=== PATIENT | male | born 1950 | race Caucasian/White ===

== ENCOUNTER → 2017-01-27 | Outpatient (CLI) | payer OTHER ==
[~2017-01-27] MED LIST: AMARYL4 MG PO; ASPIR 8181 MG PO; ATORVASTATIN CA40 MG PO; DIABETA 2.5MG2.5 MG PO; FERRIC X-150150 MG PO; HUMALOG KW200 UNIT/1 SUBQ; HYDROCODON-ACE1 EAC7 PO; LASIX 40 MG TAB40 M2 PO; LEVEMIR SUBQ; LOPRESSOR50 PO; METFORMIN HCL500 MG PO; MIRALAX17 GM PO; PACERONE 200 M200 M1 PO; PRADAXA150 MG PO; PRINIVIL10 MG PO; PRINIVIL20 M1 PO
--- NOTE | ~2017-01-27 | 2DMMODE ---
[facility] [place] [address] 2 D/M-MODE ECHOCARDIOGRAM Name: ALLEY RITTER Room #: REG CL [facility]#: [id number] Admission: 01/27/17 Attend Phys: Leeroy Davila MD Discharge: Date of : 46 Date of Service: 01/27/17 1210 Report #: [id number] THIS REPORT FOR: //name// APPROVED REPORT Study performed: 01/27/2017 10:07:16 EXAM: Comprehensive 2D, Doppler, and color-flow Echocardiogram Patient Location: Out-Patient Blood Pressure: 167/83 mmHg HR: 58 bpm Other Information Study Quality: Adequate Indications CAD Hx: CABG, Afib, DM, HTN, HLP, obesity 2D Dimensions RVDd: 46.28 mm LVEF(%): 53.98 (>50%) IVSd: 12.87 (7-11mm) LVOT Diam: 20.93 (18-24mm) LVDd: 53.99 mm PWd: 11.84 (7-11mm) Ascending Aorta: 37.14 mm LVDs: 38.78 (25-40mm) Aortic Root: 36.35 mm Short's LVEF: 53.98 % Volumes Left Atrial Volume (Systole) Single Plane 4CH: 52.27 mL Single Plane 2CH: 77.17 mL Aortic Valve AoV Peak Wes.: 1.33 m/s AO Peak Gr.: 7.05 mmHg LV Max P.50 mmHg LV Max: 0.79 m/s Mitral Valve MV E Max Wes.: 1.16 m/s MV Decel. Time: 201.49 ms Pulmonary Valve [facility] [address] [address] 2 D/M-MODE ECHOCARDIOGRAM Name: ALLEY RITTER Room #: REG CL [facility]#: [id number] Admission: 01/27/17 Attend Phys: Leeroy Davila MD Discharge: Date of : 46 Date of Service: 01/27/17 1210 Report #: [id number] PV Peak Wes.: 0.97 m/s PV Peak Gr.: 3.77 mmHg Tricuspid Valve TR Peak Wes.: 3.66 m/s RAP Estimate: 10.00 mmHg TR Peak Gr.: 53.53 mmHg RVSP: 63.00 mmHg Left Ventricle The left ventricle is normal size. There is normal LV segmental wall motion. There is normal left ventricular wall thickness. Left ventricular systolic function is normal. LVEF is 55-60%. This study is not sufficienct for diastolic function. Right Ventricle Right ventricle is mildly dilated. The right ventricular systolic function is normal. Atria Left atrium is borderline dilated. Right atrium is dilated. Aortic Valve The aortic valve is normal in structure. No aortic regurgitation is present. There is no aortic valvular stenosis. Mitral Valve Mitral valve leaflets are mildly thickened. Mild mitral regurgitation. Tricuspid Valve The tricuspid valve is normal in structure. There is mild to moderate tricuspid regurgitation. The right atrial pressure is estimated at 10 mmHg. There is moderate pulmonary hypertension with an estimated PAP of 63mmHg. Pulmonic Valve The pulmonary valve is normal in structure. Mild pulmonic regurgitation. Great Vessels The aortic root is normal in size. The ascending aorta measures at the upper limits of normal. IVC is normal in size and collapses <50% with inspiration. Pericardium There is no pericardial effusion. <Conclusion> [facility] [address] [place] [address] 2 D/M-MODE ECHOCARDIOGRAM Name: RIYAALLEY Room #: REG [facility]#: [id number] Admission: 01/27/17 Attend Phys: Leeroy Davila MD Discharge: Date of : 46 Date of Service: 01/27/17 121 Report #: [id number] The left ventricle is normal size. Left ventricular systolic function is normal. Right ventricle is mildly dilated. Left atrium is borderline dilated. The aortic valve is normal in structure. Mild mitral regurgitation. There is mild to moderate tricuspid regurgitation. The right atrial pressure is estimated at 10 mmHg. There is pulmonary hypertension with an estimated PAP of 63mmHg. <ELECTRONICALLY SIGNED> By: Leeroy Davila MD 01/27/170 09 1210 Leeroy Davila MD /SUNSHINE
== END ==
LOC: CV 10:56
DX: I25.10 Atherosclerotic heart disease of native coronary artery without angina pectoris (principal); I48.91 Unspecified atrial fibrillation; I10 Essential (primary) hypertension; E11.9 Type 2 diabetes mellitus without complications; E78.5 Hyperlipidemia, unspecified; E66.9 Obesity, unspecified; Z95.1 Presence of aortocoronary bypass graft

== ENCOUNTER 2017-05-08 18:28 | Inpatient (IN) | payer OTHER ==
[~2017-05-08] VITALS: Ht 180.3 cm; Wt 104.8 kg
--- NOTE | ~2017-05-08 | EKG ---
[place] [address] [facility] [place] [address] ELECTROCARDIOGRAM REPORT Name: ALLEY RITTER Room #: 302-P ADM IN M.R.#: [id number] Admission: 05/08/17 Attend Phys: Collin Pickard DO Discharge: Date of : 46 Report #: [id number] THIS REPORT FOR: //name// [facility] ED Test Date: 2017-05-08 Test Time: 18:40:10 Pat Name: ALLEY RITTER Department: Room: 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 : 1950 Requested By: Ginger Crespo Order Number: [id number] MD: Ernst Colby Measurements Intervals [place] Rate: 77 P: 0 DC: 66 QRS: 4 QRSD: 119 T: -6 QT: 438 QTc: 496 Interpretive Statements Sinus rhythm Nonspecific ST and T wave abnormality Compared to ECG 10/02/2015 07:19:59 No significant change was found Electronically Signed On 05-09-2017 9:02:06 CDT by Ernst Colby [email or web address] <ELECTRONICALLY SIGNED> By: Ernst Colby MD, [facility] 05/09/17 0902 [id number] 39 Ernst Colby MD, [facility] /EPI
--- NOTE | ~2017-05-08 | 2DMMODE ---
[facility] [address] [place] [address] 2 D/M-MODE ECHOCARDIOGRAM Name: ALLEY RITTER Room #: 302-P [facility] IN [facility]#: [id number] Admission: 05/08/17 Attend Phys: Collin Pickard, Discharge: Date of : 46 Date of Service: 05/09/17 1149 Report #: [id number] THIS REPORT FOR: //name// APPROVED REPORT Study performed: 05/09/2017 07:49:05 EXAM: Comprehensive 2D, Doppler, and color-flow Echocardiogram Patient Location: In-Patient Room #: 302 Status: routine Other Information Study Quality: Adequate Indications Chest Pain Hx AFIB, HTN, HLP, CAD, CABG 2D Dimensions RVDd: 52.69 mm LVEF(%): 54.03 (>50%) IVSd: 14.68 (7-11mm) LVOT Diam: 21.92 (18-24mm) LVDd: 57.80 mm PWd: 13.74 (7-11mm) Ascending Ao: 34.28 (22-36mm) LVDs: 41.40 (25-40mm) Aortic Root: 34.32 mm Short's LVEF: 54.03 % Volumes Left Atrial Volume (Systole) Single Plane 4CH: 66.81 mL Single Plane 2CH: 71.57 mL LA ESV Index: 37.00 mL/m2 Aortic Valve AoV Peak Wes.: 1.25 m/s AO Peak Gr.: 6.24 mmHg LVOT Max P.34 mmHg LVOT Max V: 0.91 m/s ABIODUN Vmax: 2.76 cm2 Mitral Valve E/A Ratio: 2.6 MV Decel. Time: 206.47 ms MV E Max Wes.: 1.26 m/s MV A Wes.: 0.48 m/s MV PHT: 59.88 ms [facility] [place] [address] 2 D/M-MODE ECHOCARDIOGRAM Name: ALLEY RITTER Room #: 302-P [facility] IN .R.#: [id number] Admission: 05/08/17 Attend Phys: Collin Pickard, Discharge: Date of : 46 Date of Service: 05/09/17 1149 Report #: [id number] IVRT: 64.59 ms Pulmonary Valve PV Peak Wes.: 1.05 m/s PV Peak Gr.: 4.42 mmHg Pulmonary Vein P Vein S: 0.52 m/s P Vein A: 0.14 m/s P Vein D: 0.56 m/s P Vein A Dur.: 92.3 msec P Vein S/D Ratio: 0.93 Tricuspid Valve TR Peak Wes.: 2.95 m/s RAP Estimate: 5.00 mmHg TR Peak Gr.: 34.84 mmHg PA Pressure: 40.00 mmHg Left Ventricle The left ventricle is normal size. Moderate concentric left ventricular hypertrophy. The left ventricular systolic function is normal. The left ventricular ejection fraction is within the normal range. LVEF is 50-55%. The left ventricular diastolic function is normal. Right Ventricle Right ventricle is at the upper limits of normal. Atria Left atrium is dilated. Right atrium is dilated. Aortic Valve The aortic valve is normal in structure. Trace aortic regurgitation. There is no aortic valvular stenosis. Mitral Valve The mitral valve is normal in structure. Trace mitral regurgitation. No evidence of mitral valve stenosis. Tricuspid Valve The tricuspid valve is normal in structure. There is trace to mild tricuspid regurgitation. The right atrial pressure is estimated at 5 mmHg. There is mild pulmonary hypertension with an estimated PAP of 35 mmHg plus the right atrial pressure. Pulmonic Valve The pulmonary valve is normal in structure. Trace pulmonic regurgitation. [facility] [address] [place] [address] 2 D/M-MODE ECHOCARDIOGRAM Name: ALLEY RITTER Room #: 302-P [facility] IN ..#: [id number] Admission: 05/08/17 Attend Phys: Collin Pickard, Discharge: Date of : 46 Date of Service: 05/09/17 1149 Report #: [id number] Great Vessels The aortic root is normal in size. The ascending aorta is normal in size. IVC is normal in size and collapses >50% with inspiration. Pericardium There is no pericardial effusion. <Conclusion> The left ventricle is normal size. LVEF is 50-55%. Left atrium is dilated. Right atrium is dilated. The aortic valve is normal in structure. Trace aortic regurgitation. The mitral valve is normal in structure. Trace mitral regurgitation. The tricuspid valve is normal in structure. There is trace to mild tricuspid regurgitation. The right atrial pressure is estimated at 5 mmHg. There is mild pulmonary hypertension with an estimated PAP of 35 mmHg plus the right atrial pressure. The pulmonary valve is normal in structure. Trace pulmonic regurgitation. <ELECTRONICALLY SIGNED> By: Terrell Light MD 05/09/17 1149 1149 1149 Terrell Light MD /INF
[2017-05-08 18:39] VITALS: BP 162/73
[2017-05-08 19:24] LABS: ABSOLUTE NEUTROPHILS 8.6 thou/uL (1.4-8.2); BASOPHILS 0.8 % (0.0-2.0); EOSINOPHILS 2.2 % (0.0-3.0); HEMOGLOBIN 12.8 gm/dL (14.0-18.0); LYMPHOCYTES 4.3 % (24.0-44.0); MCH 32.8 pg (26.0-34.0); MCHC 34.5 g/dL (28.0-37.0); MCV 94.9 fL (80.0-100.0); MONOCYTES 7.8 % (1.0-8.0); PLATELET COUNT 130 thou/uL (150-400); POLYS 84.9 % (36.0-66.0); RDW 14.2 % (10.5-14.5); WBC 10.1 thou/uL (4.0-11.0)
[2017-05-08 19:25] LABS: MANUAL DIFF NO
[2017-05-08 19:43] LABS: CALCIUM 9.1 mg/dL (8.5-10.1); CREATININE 1.6 mg/dL (0.7-1.3); POTASSIUM 4.3 mmol/L (3.5-5.1)
[2017-05-08] MEDS ORDERED: COZAAR 25 MG TA25 MG PO (19:45)
[2017-05-08 19:49] LABS: ALBUMIN 3.8 g/dL (3.4-5.0); TOTAL BILIRUBIN 1.9 mg/dL (<0.1-1.0); TOTAL PROTEIN 7.7 g/dL (6.4-8.2); TROPONIN-I 0.07 ng/mL (<0.04-0.07)
[2017-05-08 19:53] LABS: MAGNESIUM 1.7 mg/dL (1.8-2.4)
[2017-05-08 20:04] LABS: URINE BILIRUBIN NEGATIVE (Negative); URINE BLOOD 2+ (Negative); URINE COLOR YELLOW; URINE GLUCOSE-RANDOM* 2+ (Negative); URINE KETONES NEGATIVE (Negative); URINE NITRITE NEGATIVE (Negative); URINE PROTEIN (DIPSTICK) 2+ (Negative)
[2017-05-08 20:19] LABS: BACTERIA 1-9 Few /HPF (None Seen); CASTS None Seen /LPF (None Seen); CRYSTALS None Seen /LPF (None Seen); SQUAMOUS None Seen /LPF (0-3); URINE RBC 0-2 Rare /HPF (0-2); URINE WBC None Seen /HPF (0-5)
[2017-05-08 20:27] LABS: DIRECT BILIRUBIN 0.3 mg/dL (<0.1-0.3)
[2017-05-08 21:30] VITALS: BP 146/76
[2017-05-08 22:03] VITALS: BP 162/73
[2017-05-08 22:14] LABS: URINE BILIRUBIN NEGATIVE (Negative); URINE BLOOD 2+ (Negative); URINE COLOR YELLOW; URINE GLUCOSE-RANDOM* 2+ (Negative); URINE KETONES NEGATIVE (Negative); URINE LEUKOCYTES-REFLEX NEGATIVE (Negative); URINE PROTEIN (DIPSTICK) 2+ (Negative)
[2017-05-08 22:30] LABS: CASTS None Seen /LPF (None Seen); CRYSTALS None Seen /LPF (None Seen); SQUAMOUS None Seen /LPF (0-3); URINE RBC 0-2 Rare /HPF (0-2); URINE WBC-REFLEX None Seen /HPF (0-5)
[2017-05-09 04:00] VITALS: BP 173/78
[2017-05-09 05:30] LABS: HEMOGLOBIN 11.4 gm/dL (14.0-18.0); MCH 32.8 pg (26.0-34.0); MCHC 34.5 g/dL (28.0-37.0); MCV 95.1 fL (80.0-100.0); PLATELET COUNT 112 thou/uL (150-400); RBC 3.47 mil/uL (4.50-6.00); RDW 14.3 % (10.5-14.5); WBC 5.9 thou/uL (4.0-11.0)
[2017-05-09 05:35] LABS: MANUAL DIFF YES
[2017-05-09 05:40] LABS: CALCIUM 8.4 mg/dL (8.5-10.1); CREATININE 1.4 mg/dL (0.7-1.3); POTASSIUM 3.8 mmol/L (3.5-5.1)
[2017-05-09 07:41] LABS: ABSOLUTE NEUTROPHILS 4.1 thou/uL (1.4-8.2); TOTAL CELL COUNT 100
[2017-05-09 07:42] LABS: ANISOCYTOSIS 1+; OVALOCYTES FEW
[2017-05-09 08:00] VITALS: BP 158/75
[2017-05-09 16:00] VITALS: BP 134/65
[2017-05-09 19:31] VITALS: BP 135/55
[2017-05-10 03:51] VITALS: BP 130/62
[2017-05-10 04:07] LABS: HEMATOCRIT 32.5 % (42.0-52.0); HEMOGLOBIN 11.1 gm/dL (14.0-18.0); MCH 32.6 pg (26.0-34.0); MCHC 34.3 g/dL (28.0-37.0); MCV 95.2 fL (80.0-100.0); PLATELET COUNT 131 thou/uL (150-400); RBC 3.41 mil/uL (4.50-6.00); RDW 14.1 % (10.5-14.5); WBC 6.6 thou/uL (4.0-11.0)
[2017-05-10 04:16] LABS: MANUAL DIFF YES
[2017-05-10 04:27] LABS: CALCIUM 8.5 mg/dL (8.5-10.1); CREATININE 1.8 mg/dL (0.7-1.3); POTASSIUM 3.9 mmol/L (3.5-5.1)
[2017-05-10 05:16] LABS: ABSOLUTE NEUTROPHILS 6.1 thou/uL (1.4-8.2); TOTAL CELL COUNT 100
[2017-05-10 07:31] VITALS: BP 151/84
[2017-05-10] MEDS ORDERED: KEFLEX500 MG PO (13:52)
[2017-05-10] MEDS ORDERED: AZITHROMYCIN 2250 MG PO (13:52)
[2017-05-10] MEDS ORDERED: MEDROL DOSPAK21 TA1 PO (13:59)
[2017-05-10 14:06] VITALS: BP 151/84
[2017-05-10 14:46] VITALS: BP 151/84
== END 2017-05-10 14:47 | disposition home or self-care (01) | DRG 871 ==
LOC: ER 18:28 → EROBS 20:10 → 3N 20:10
PROVIDERS: Emergency Medicine; Nurse Practitioner; Physician Assistant
DX: A41.9 Sepsis, unspecified organism (principal); J18.9 Pneumonia, unspecified organism; G93.41 Metabolic encephalopathy; E87.1 Hypo-osmolality and hyponatremia; E78.5 Hyperlipidemia, unspecified; I48.91 Unspecified atrial fibrillation; K21.9 Gastro-esophageal reflux disease without esophagitis; E11.42 Type 2 diabetes mellitus with diabetic polyneuropathy; N18.9 Chronic kidney disease, unspecified; E83.42 Hypomagnesemia; D69.6 Thrombocytopenia, unspecified; E11.65 Type 2 diabetes mellitus with hyperglycemia; E11.22 Type 2 diabetes mellitus with diabetic chronic kidney disease; I27.2 Other secondary pulmonary hypertension; E66.9 Obesity, unspecified; I12.9 Hypertensive chronic kidney disease with stage 1 through stage 4 chronic kidney disease, or unspecified chronic kidney disease; I25.10 Atherosclerotic heart disease of native coronary artery without angina pectoris; Z95.1 Presence of aortocoronary bypass graft; Z87.442 Personal history of urinary calculi; Z68.32 Body mass index [BMI] 32.0-32.9, adult; Z79.4 Long term (current) use of insulin; Z79.82 Long term (current) use of aspirin; Z79.899 Other long term (current) drug therapy
CPT/HCPCS: 10795

== ENCOUNTER → 2017-07-31 | Outpatient (CLI) | payer OTHER ==
[~2017-07-31] MED LIST changes: +AZITHROMYCIN 2250 MG PO; +COZAAR 25 MG TA25 MG PO; +KEFLEX500 MG PO; +MEDROL DOSPAK21 TA1 PO
== END ==
LOC: NUC 06:58
DX: I25.10 Atherosclerotic heart disease of native coronary artery without angina pectoris (principal); I10 Essential (primary) hypertension; E11.9 Type 2 diabetes mellitus without complications; Z79.4 Long term (current) use of insulin

== ENCOUNTER 2018-04-01 09:52 | Outpatient (CLI) | payer OTHER ==
[~2018-04-01] VITALS: Ht 177.8 cm; Wt 97.5 kg
--- NOTE | ~2018-04-01 | EKG ---
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
--- NOTE | ~2018-04-01 | EKG ---
[address] [address] ELECTROCARDIOGRAM REPORT Name: ALLEY RITTER [id number] Admission: 04/01/18 Attend Phys: Varinder Banks MD Discharge: 04/02/18 Date of : 46 Report #: [id number] THIS REPORT FOR: //name// [facility] Test Date: 2018-04-02 Test Time: 09:03:49 Pat Name: ALLEY RITTER Department: Room: 206 P Gender: M Mender Hand: Brianna HEAD : 1950 Requested By: Varinder Banks Order Number: [id number] MD: Ernst Colby Measurements Intervals [place] Rate: 78 P: NV: QRS: 26 QRSD: 111 T: -32 QT: 439 QTc: 501 Interpretive Statements Atrial fibrillation Nonspecific repol abnormality, diffuse leads Prolonged QT interval Compared to ECG 04/01/2018 14:17:44 No significant change was found Electronically Signed On 04-02-2018 15:36:20 CDT by Ernst Colby [email or web address] <ELECTRONICALLY SIGNED> By: Ernst Colby MD, [facility] 04/02/18 1536 0903 0903 Ernst Colby MD, [facility] /EPI
--- NOTE | ~2018-04-01 | P ---
[facility] [place] [address] PROCEDURE REPORT Name: ALLEY RITTER Room #: DEP Param MichelleMichelle#: [id number] Admission: 04/01/18 Attend Phys: Varinder Banks MD Discharge: 04/02/18 Date of : 46 Report #: [id number] THIS REPORT FOR: //name// CC: Varinder Landeros PREOPERATIVE DIAGNOSIS: Atrial fibrillation. POSTOPERATIVE DIAGNOSIS: Atrial fibrillation and severe sick sinus syndrome. DESCRIPTION OF PROCEDURE: The patient was brought in for DC cardioversion. He underwent informed consent. He was prepped in the standard fashion. Once he was sedated by the anesthesiology service, he underwent a 200 joule synchronized cardioversion with jewish of sinus rhythm. We monitored the patient for close to an hour and a half and he remained in a junctional rhythm in the 30s to 40s. As such, we recommended inpatient admission for close monitoring of his rhythm and the patient may need pacemaker implantation. <ELECTRONICALLY SIGNED> By: Varinder Banks MD 04/02/18 1425 1624 0047 Varinder Banks MD /nt
--- NOTE | ~2018-04-01 | D ---
[facility] [place] [place] [address] DISCHARGE SUMMARY Name: ALLEY RITTER Room #: DEP [facility]ODNEY [facility]ley#: [id number] Admission: 04/01/18 Attend Phys: Varinder Banks MD Discharge: 04/02/18 Date of : 46 Report #: [id number] THIS REPORT FOR: //name// CC: Varinder Landeros HISTORY OF PRESENT ILLNESS: The patient has history of coronary artery disease, status post CABG as well as maze procedure and left atrial appendage ligation, recently diagnosed with atrial fibrillation. As such, the patient was started on Multaq and came in yesterday for elective cardioversion. The patient was successfully cardioverted out of atrial fibrillation, but he went into a junctional rhythm with a rate in the 30s to 40s. I monitored him for a period of an hour post-procedure and the rhythm did not improve. I, therefore, recommended inpatient admission for monitoring and possible pacemaker implantation. HOSPITAL COURSE: The patient was admitted to the hospital. I did hold his anticoagulation in case he required a pacemaker. I also held his Multaq and his beta alvin. He remained in a junctional rhythm, but then went back into atrial fibrillation with rates in the 70s to 80s. As such, we had a discussion about proceeding with pacemaker implantation at this time or seeing how he does over the next month and considering implantation of a pacemaker if we decide to try and cardiovert the patient again in the future. He said he would like to wait, see me back in a month to see how he is doing and then we will discuss the pacemaker implantation if he decides on proceeding with another cardioversion. As such, the patient was deemed stable for discharge. He was instructed to resume his anticoagulation and his beta-alvin. He was instructed to discontinue the Multaq therapy. I will see the patient back in 4-6 weeks. <ELECTRONICALLY SIGNED> By: Varinder Banks MD 04/02/18 1425 1052 1151 Varinder Banks MD /nt
--- NOTE | ~2018-04-01 | H ---
[facility] [place] [place] [address] HISTORY AND PHYSICAL Name: RIYAALLEY Latham Room #: DEP Param Morley#: [id number] Admission: 04/01/18 Attend Phys: Varinder Banks MD Discharge: 04/02/18 Date of : 46 Report #: [id number] THIS REPORT FOR: //name// CC: Varinder Landeros DATE OF SERVICE: 04/01/2018 REASON FOR ADMISSION: Symptomatic bradycardia, status post cardioversion. HISTORY OF PRESENT ILLNESS: The patient is a 67-year-old male with history of atrial fibrillation and coronary artery disease, who I was asked to see in consultation on 03/17. He was recently found to have recurrent atrial fibrillation, and therefore, I initiated Multaq therapy and brought him in today for a cardioversion. The cardioversion was successful; however, he was noted to be in a junctional rhythm in the 30s-40s post-cardioversion. I therefore recommended admission. Initially, he was resistant to admission, but I discussed that given that he was in a junctional rhythm that the safest option would be to monitor him closely in the CCU overnight. His is also in agreement. REVIEW OF SYSTEMS: A 12-point review of systems was performed, negative other than what I mentioned above. PAST MEDICAL HISTORY: 1. Coronary artery disease who presented with unstable angina and AFib, who underwent a CABG with 2 vessels, cryoablation and ligation of left atrial appendage back in 09/2015. 2. Diabetes. 3. Hypertension. 4. Hyperlipidemia. 5. GERD. 6. Echo, EF was normal back in 02/2017. Nuclear stress test 07/2017 shows no evidence of ischemia. HOME MEDICATIONS: Include apixaban 5 mg twice a day, aspirin, atenolol, atorvastatin, furosemide, insulin, losartan and metformin. He has also recently been on Multaq 400 b.i.d. SOCIAL HISTORY: Does not smoke. FAMILY HISTORY: Noncontributory other than some strokes. PHYSICAL EXAMINATION: VITAL SIGNS: Today, sats are 95%, blood pressure 120s/80s, with heart rates in the 30s-40s. [facility] [address] [place] [address] HISTORY AND PHYSICAL Name: ALLEY RITTER Room #: DEP [facility]#: [id number] Admission: 04/01/18 Attend Phys: Varinder Banks MD Discharge: 04/02/18 Date of : 46 Report #: [id number] GENERAL: He is in no acute distress. HEENT: Oropharynx is clear. CARDIOVASCULAR: Bradycardic, but regular. LUNGS: Clear to auscultation bilaterally. ABDOMEN: Soft, nontender, nondistended with no hepatosplenomegaly. EXTREMITIES: There is no clubbing, cyanosis, edema. NEUROLOGIC: Cranial nerves 2-12 are intact. LABORATORY DATA: White count 7.7, hemoglobin 12, platelets are 112. Potassium is 4.6, creatinine is 1.6, glucose is 269. His 12-lead EKG post-cardioversion shows a junctional rhythm in the 30s-40s. ASSESSMENT: 1. Severe sick sinus syndrome with junctional rhythm. 2. Atrial fibrillation. 3. Tachycardia-bradycardia syndrome. 4. Coronary artery disease. PLAN: In summary, the patient will be admitted to the hospital for close monitoring of his heart rhythm. He is now out of atrial fibrillation, but has evidence of severe sick sinus syndrome. Based on these findings, I think the patient will meet criteria for pacemaker implantation given that he needs to be on long-term beta blockers and antiarrhythmic drugs to maintain sinus rhythm. We will discuss the timing of this procedure, whether or not this will be done during this hospitalization or as an outpatient. <ELECTRONICALLY SIGNED> By: Varinder Banks MD 04/02/18 1425 1622 1641 Varinder Banks MD /nt
[2018-04-01] MEDS ORDERED: ELIQUIS5 M1 PO (10:15)
[2018-04-01] MEDS ORDERED: MULTAQ400 MG PO (10:15)
[2018-04-01] MEDS ORDERED: COZAAR 50 MG TA50 M2 PO (10:16)
[2018-04-01] MEDS ORDERED: ATENOLOL 50MG T50 M1 PO (10:16)
[2018-04-01] MEDS ORDERED: METFORMIN HCL500 MG PO (10:17)
[2018-04-01 10:35] LABS: HEMATOCRIT 38.3 % (42.0-52.0); HEMOGLOBIN 12.7 gm/dL (14.0-18.0); MCH 31.7 pg (26.0-34.0); MCHC 33.3 g/dL (28.0-37.0); MCV 95.3 fL (80.0-100.0); RBC 4.02 mil/uL (4.50-6.00); RDW 14.5 % (10.5-14.5); WBC 7.7 thou/uL (4.0-11.0)
[2018-04-01 10:44] LABS: CALCIUM 9.5 mg/dL (8.5-10.1); CREATININE 1.6 mg/dL (0.7-1.3); POTASSIUM 4.6 mmol/L (3.5-5.1)
[2018-04-01 11:26] LABS: INR 1.1; PROTIME 11.6 Seconds (9.3-11.4)
[2018-04-01 19:46] VITALS: BP 149/78
[2018-04-02 00:20] VITALS: BP 160/99
[2018-04-02 04:45] VITALS: BP 178/99
[2018-04-02 07:00] VITALS: BP 169/98
[2018-04-02 11:27] VITALS: BP 169/98
== END 2018-04-02 11:40 | disposition home or self-care (01) ==
LOC: CATH 09:52 → 2N 15:40 → ENTRNSPT 04-02 11:32 → EDTRNSPTSTS 04-02 11:36 → CATH 04-02 11:40
PROVIDERS: Internal Medicine Cardiovascular Disease
DX: I48.91 Unspecified atrial fibrillation (principal); I49.5 Sick sinus syndrome; R00.0 Tachycardia, unspecified; I10 Essential (primary) hypertension; I25.10 Atherosclerotic heart disease of native coronary artery without angina pectoris; E11.9 Type 2 diabetes mellitus without complications; E78.5 Hyperlipidemia, unspecified; K21.9 Gastro-esophageal reflux disease without esophagitis; Z98.890 Other specified postprocedural states; Z79.899 Other long term (current) drug therapy; Z95.1 Presence of aortocoronary bypass graft; Z79.4 Long term (current) use of insulin; Z88.8 Allergy status to other drugs, medicaments and biological substances
CPT/HCPCS: 10081

== ENCOUNTER 2018-05-29 09:16 | Observation (INO) | payer OTHER ==
[~2018-05-29] VITALS: Ht 177.8 cm; Wt 106.1 kg
--- NOTE | ~2018-05-29 | P ---
[facility] [place] [place] [address] PROCEDURE REPORT Name: ALLEY RITTER Room #: 211-P [facility]#: [id number] Admission: 05/29/18 Attend Phys: Varinder Banks MD Discharge: Date of : 46 Report #: [id number] THIS REPORT FOR: //name// CC: Varinder Landeros PROCEDURE: Pacemaker insertion. PREOPERATIVE DIAGNOSES: 1. Sick sinus syndrome. 2. Tachycardia-bradycardia syndrome. 3. Atrial fibrillation. HISTORY: The patient is a 67-year-old with history of coronary artery disease status post CABG who I recently saw for atrial fibrillation. I loaded the patient with dronedarone therapy and brought him in for a DC cardioversion. Post cardioversion, he demonstrated sinus bradycardia with a heart rate of 30-40 beats per minute. I decided to keep him in the hospital overnight in anticipation of possible pacemaker. I held all his rate control medications including his dronedarone and overnight, he converted back to atrial fibrillation with resolution of his bradycardia. At that time, we discussed pacemaker implantation but he wanted to think this over as an outpatient. When I saw him as an outpatient, he was still having fatigue and shortness of breath with lower extremity swelling. An echocardiogram was performed showing EF of 45% with mild to moderate mitral regurgitation. He therefore consented to a dual chamber pacemaker implantation with plans to undergo a cardioversion after he has healed from the device implant. ANESTHESIA: The patient underwent MAC anesthesia with no anesthesia related complications. DESCRIPTION OF PROCEDURE: The patient underwent informed consent. We discussed the details of the procedure including the risks, which include but not limited to bleeding, infection, vascular damage, cardiac perforation and pneumothorax. He understood these risks and was willing to proceed. As such, the patient was brought to the EP laboratory in a fasting and unsedated state, prepped and draped in a sterile fashion, received IV antibiotics prior to initiation of the procedure and underwent a venogram showing patency of the left axillary vein. Next, I injected lidocaine at the incision site. Incision was made. Pocket was created in the prepectoral fascia and access was obtained twice in the left axillary vein using the extrathoracic approach with the sheaths positioned using the modified Seldinger technique. Next, lead was positioned in the right ventricular apex with adequate pacing and sensing thresholds. Of note, the RV lead would actually easily slip into the coronary sinus. Eventually, I got this lead into the RV apex with adequate pacing and sensing thresholds. Next, I positioned a lead into the right atrium. The P waves were very, very small as the patient was in atrial fibrillation. I therefore repositioned the lead until [address] [address] PROCEDURE REPORT Name: ALELY RITTER Room #: 211-P [facility] M.R.#: [id number] Admission: 05/29/18 Attend Phys: Varinder Banks MD Discharge: Date of : 46 Report #: [id number] we had some P waves that were around 0.5-0.8 in size. As such, both leads were sutured to the prepectoral fascia and connected to the device. The pocket was irrigated with vancomycin. The pocket was closed in 3 layers using 2-0 for the deep layer, 3-0 for the mid layer and 4-0 for the subcuticular. Surgical glue was placed to the outer skin layer. The patient awoke neurologically and hemodynamically intact. No complications and no significant bleeding. The implanted pacemaker was a [employer], model #UY3409, serial #[id number]. The atrial lead was [employer], model #2088TC, 52 cm, serial #[id number] with a P-wave of 0.8 millivolts, pacing impedance of 396 ohms and a threshold could not be obtained due to atrial fibrillation. The RV lead was [employer], model #2088TC, 58 cm, serial #[id number]. This lead demonstrated an R-wave of 10.5 millivolts, pacing impedance of 40 ohms and a pacing threshold of 0.5 at 0.4 milliseconds. The device was programmed to DDD 60-130 mode. CONCLUSIONS: 1. Successful dual-chamber pacemaker implantation. 2. Satisfactory atrial and ventricular lead characteristics. By: 1510 0017 Varinder Banks MD /nt
[~2018-05-29 09:16] MED LIST changes: +ATENOLOL 50MG T50 M1 PO; +COZAAR 50 MG TA50 M2 PO; +ELIQUIS5 M1 PO; +MULTAQ400 MG PO
[2018-05-29 10:12] LABS: ABSOLUTE NEUTROPHILS 4.4 thou/uL (1.4-8.2); BASOPHILS 0.9 % (0.0-2.0); EOSINOPHILS 3.3 % (0.0-3.0); HEMATOCRIT 36.4 % (42.0-52.0); HEMOGLOBIN 12.3 gm/dL (14.0-18.0); LYMPHOCYTES 13.3 % (24.0-44.0); MCH 32.3 pg (26.0-34.0); MCHC 33.7 g/dL (28.0-37.0); MCV 95.7 fL (80.0-100.0); MONOCYTES 9.8 % (1.0-8.0); PLATELET COUNT 132 thou/uL (150-400); POLYS 72.7 % (36.0-66.0); RDW 14.6 % (10.5-14.5)
[2018-05-29 10:21] VITALS: BP 177/99
[2018-05-29 10:30] LABS: APTT 27.8 Seconds (24.5-32.8); CREATININE 1.4 mg/dL (0.7-1.3); INR 1.1; POTASSIUM 4.2 mmol/L (3.5-5.1); PROTIME 11.2 Seconds (9.3-11.4)
[2018-05-29] MEDS ORDERED: TRESIBA FL100 UNIT/1 PO (10:34)
[2018-05-29 10:36] LABS: ALBUMIN 3.4 g/dL (3.4-5.0); TOTAL BILIRUBIN 0.9 mg/dL (<0.1-1.0); TOTAL PROTEIN 6.9 g/dL (6.4-8.2)
[2018-05-29] MEDS ORDERED: NOVOLOG100 UNIT/1 SUBQ (10:36)
[2018-05-29 16:32] VITALS: BP 141/81
[2018-05-29 19:49] VITALS: BP 189/116
[2018-05-29 23:44] VITALS: BP 187/116
[2018-05-30] VITALS (7 sets, daily range): BP systolic 162–191; BP diastolic 98–120
[2018-05-30 05:20] LABS: CREATININE 1.5 mg/dL (0.7-1.3); POTASSIUM 3.9 mmol/L (3.5-5.1)
== END 2018-05-30 16:00 | disposition home or self-care (01) ==
LOC: CATH 09:16 → 2N 16:11
PROVIDERS: Internal Medicine Cardiovascular Disease
DX: I49.5 Sick sinus syndrome (principal); I48.91 Unspecified atrial fibrillation; I25.10 Atherosclerotic heart disease of native coronary artery without angina pectoris; I12.9 Hypertensive chronic kidney disease with stage 1 through stage 4 chronic kidney disease, or unspecified chronic kidney disease; E11.22 Type 2 diabetes mellitus with diabetic chronic kidney disease; N18.9 Chronic kidney disease, unspecified; Z95.1 Presence of aortocoronary bypass graft
CPT/HCPCS: 62110; 62900; 70005

== ENCOUNTER → 2018-07-27 | Outpatient (CLI) | payer OTHER ==
[~2018-07-27] MED LIST changes: +AMIODARONE HCL400 MG PO; +NOVOLOG100 UNIT/1 SUBQ; +TRESIBA FL100 UNIT/1 PO
[2018-07-27 07:43] LABS: HEMATOCRIT 37.9 % (42.0-52.0); HEMOGLOBIN 12.9 gm/dL (14.0-18.0); MCH 32.4 pg (26.0-34.0); MCV 95.4 fL (80.0-100.0); RBC 3.98 mil/uL (4.50-6.00); RDW 14.8 % (10.5-14.5); WBC 6.2 thou/uL (4.0-11.0)
[2018-07-27 07:57] LABS: ALBUMIN 3.5 g/dL (3.4-5.0); CALCIUM 8.8 mg/dL (8.5-10.1); CREATININE 1.5 mg/dL (0.7-1.3); POTASSIUM 4.3 mmol/L (3.5-5.1); TOTAL PROTEIN 6.9 g/dL (6.4-8.2)
== END ==
LOC: CAT 07:18
PROVIDERS: Internal Medicine Cardiovascular Disease
DX: I48.91 Unspecified atrial fibrillation (principal); I25.10 Atherosclerotic heart disease of native coronary artery without angina pectoris; E11.40 Type 2 diabetes mellitus with diabetic neuropathy, unspecified; I10 Essential (primary) hypertension; E78.5 Hyperlipidemia, unspecified; K21.9 Gastro-esophageal reflux disease without esophagitis; Z79.4 Long term (current) use of insulin

== ENCOUNTER → 2018-09-02 | Outpatient (CLI) | payer OTHER ==
[~2018-09-02] VITALS: Ht 177.8 cm; Wt 99.8 kg
--- NOTE | ~2018-09-02 | P ---
[facility] [place] [address] PROCEDURE REPORT Name: ALLEY RITTER Room #: REG [facility]#: [id number] Admission: 09/02/18 Attend Phys: Varinder Banks MD Discharge: Date of : 46 Report #: [id number] THIS REPORT FOR: //name// CC: Leeroy Landeros PROCEDURE: Cardioversion. PREOPERATIVE DIAGNOSIS: Atrial fibrillation. POSTOPERATIVE DIAGNOSIS: Atrial fibrillation. DESCRIPTION OF PROCEDURE: The patient underwent informed consent. The patient was then sedated by the Anesthesiology service and underwent a 200 joule synchronized cardioversion with moravian of sinus rhythm. Post-cardioversion, his [employer] dual chamber pacemaker was interrogated and found to be functioning normally. There were no procedural complications. CONCLUSIONS: 1. Successful DC cardioversion with moravian of sinus rhythm. 2. Successful pacemaker interrogation. By: 1007 1634 Varinder Banks MD /nt
[2018-09-02 07:31] LABS: HEMATOCRIT 32.2 % (42.0-52.0); HEMOGLOBIN 11.1 gm/dL (14.0-18.0); MCH 32.8 pg (26.0-34.0); MCHC 34.6 g/dL (28.0-37.0); MCV 94.6 fL (80.0-100.0); RBC 3.4 mil/uL (4.50-6.00); WBC 6.1 thou/uL (4.0-11.0)
[2018-09-02 07:45] LABS: INR 1.2; PROTIME 12.7 Seconds (9.3-11.4)
[2018-09-02 07:49] LABS: CALCIUM 9.4 mg/dL (8.5-10.1); CREATININE 1.9 mg/dL (0.7-1.3); POTASSIUM 4.1 mmol/L (3.5-5.1)
== END | disposition home or self-care (01) ==
LOC: CATH 07:02
PROVIDERS: Internal Medicine Cardiovascular Disease
DX: I48.91 Unspecified atrial fibrillation (principal); I12.9 Hypertensive chronic kidney disease with stage 1 through stage 4 chronic kidney disease, or unspecified chronic kidney disease; E11.22 Type 2 diabetes mellitus with diabetic chronic kidney disease; N18.9 Chronic kidney disease, unspecified; E11.40 Type 2 diabetes mellitus with diabetic neuropathy, unspecified; I25.10 Atherosclerotic heart disease of native coronary artery without angina pectoris; E78.5 Hyperlipidemia, unspecified; Z95.0 Presence of cardiac pacemaker; Z87.442 Personal history of urinary calculi; Z87.891 Personal history of nicotine dependence; Z79.4 Long term (current) use of insulin; Z95.1 Presence of aortocoronary bypass graft; Z98.890 Other specified postprocedural states; Z88.8 Allergy status to other drugs, medicaments and biological substances; Z79.899 Other long term (current) drug therapy
CPT/HCPCS: 62110; 62900

== ENCOUNTER 2018-10-13 20:59 | Inpatient (IN) | payer OTHER ==
[~2018-10-13] VITALS: Ht 177.8 cm; Wt 101.6 kg
--- NOTE | ~2018-10-13 | PATH ---
[facility] [address] [place] [address] PATHOLOGY RPT PROCEDURE Name: ALLEY RITTER Room #: 351-P DIS IN M.R.#: [id number] Admission: 10/13/18 Date of : 46 Discharge: 10/15/18 Report #: [id number] Path Case #: [id number] [facility] Accession Number: [id number] . 01 Material submitted: . ANTRUM BIOPSY R/O H. PYLORI . 01 Clinical history: . Pre-OP DX: GI bleed Post-OP DX: Gastritis . 02 Diagnosis: Gastric mucosa, antrum R/O H. pylori, endoscopic biopsy: - Mild reactive gastropathy. - Negative for intestinal metaplasia or atrophy. - Negative for Helicobacter pylori (properly controlled immunohistochemical stain performed). (IUV:kerrie; 10/16/2018) QMS/10/16/2018 . 02 Electronically signed: . Belinda Tony MD, Pathologist NPI- [id number] . 01 Gross description: . Received in formalin labeled "Alley Ritter antrum BX," are 2 segments of hinkle soft tissue measuring 0.9 x 0.2 x 0.2 cm in aggregate dimensions and ranging from 0.4 to 0.5 cm in maximum dimension. The specimen is submitted entirely in cassette A1. (TSD; 10/15/2018) TOB/TOB . 02 Pathologist provided ICD-10: K31.9 . 02 CPT . 518652, S86151 Specimen Comment: A courtesy copy of this report has been sent to Specimen Comment: [phone], , . Specimen Comment: Report sent to , and Specimen Comment: A duplicate report has been generated due to demographic updates. Performed at: [address], [place], [place] [id number] MD Ahsan Doshi MD Phone: [phone] Performed at: [address] [place] [address] PATHOLOGY RPT PROCEDURE Name: ALLEY RITTER Room #: 351-P DIS IN M.R.#: [id number] Admission: 10/13/18 Date of : 46 Discharge: 10/15/18 Report #: [id number] Path Case #: [id number] [facility] [address] [id number] MD Belinda Tony MD Phone: [phone]
--- NOTE | ~2018-10-13 | P ---
[facility] [place] [address] PROCEDURE REPORT Name: ALLEY RITTER Room #: 351-P [facility] IN M.R.#: [id number] Admission: 10/13/18 Attend Phys: Nam Yee MD Discharge: 10/15/18 Date of : 46 Report #: [id number] THIS REPORT FOR: //name// CC: Nam Landeros DATE OF SERVICE: 10/15/2018 He is a patient of Dr. Nam Yee and Dr. Dav Landeros. Informed consent for this procedure was obtained prior to the administration of any medication. The risks of the procedure, which include bleeding, perforation, infection, complications of sedation and the possibility I could miss something have been explained to the patient, and he has indicated his consent by signing. INDICATION FOR PROCEDURE: The patient presented with nausea and coffee-ground emesis, sudden onset of feeling poorly, uncertain etiology. He does have a normocytic normochromic anemia. I do not have a stool guaiac, on him yet. He has a family history of colon cancer. Informed consent for this procedure was obtained prior to the administration of any medication. The risks of the procedure, which include bleeding, perforation, infection, complications of sedation and the possibility I could miss something were explained to the patient and he has indicated his consent by signing. Propofol was slowly titrated before and during this procedure by the anesthesia service. The Olympus upper videoscope was introduced through the upper esophageal sphincter and advanced under direct visualization to the third portion of the duodenum. Findings are noted on withdrawal of the scope. The visualized portion of the third portion of the duodenum appears normal. The second portion and the duodenal bulb and duodenal sweep appeared normal. Pylorus, normal mucosa. Antrum, mild erythema is noted. In the antrum, there is also some nodularity of the mucosa. Biopsies are obtained x 2 for histopathology from this area. Body, mild erythema is noted. Cardia and fundus, mild erythema that is patchy noted. Retroflex view did not reveal any hiatal hernia. The scope was withdrawn into the esophagus. The Z-line is appropriately located at the top of the gastric folds. There is some erythema of the very distal 1-2 cm of the esophagus just above the Z line. This is probably secondary to gastroesophageal reflux. The esophageal mucosa appears normal throughout its entirety. The scope was withdrawn. The patient went to the recovery area in stable condition. He tolerated the procedure well. Good hemostasis was noted after the biopsies of the antrum. [facility] [address] [place] [address] PROCEDURE REPORT Name: ALLEY RITTER Room #: 351-P DIS IN M.R.#: [id number] Admission: 10/13/18 Attend Phys: Nam Yee MD Discharge: 10/15/18 Date of : 46 Report #: [id number] IMPRESSION: 1. Mild distal esophageal erythema. 2. Diffuse patchy gastric erythema, biopsies pending from the stomach. 3. Normal duodenum. RECOMMENDATIONS: To await the biopsy results. I do not think that when I am seeing in his stomach today, explains his anemia with a hemoglobin of 9 and because of his family history of colon cancer, I would strongly recommend he proceed with colonoscopy in the very near future. This does not necessarily have to be done as an inpatient acutely. We will guaiac stools for blood. We will recheck his H and H in the morning. We will start him on a soft diet today. Thank you very much once again for allowing me to participate in his care, Dr. Yee and Dr. Landeros. By: [id number] Bonnie Clemons, /nt
[2018-10-13 22:13] VITALS: BP 137/71
[2018-10-14 00:50] LABS: HEMATOCRIT 29.4 % (42.0-52.0); HEMOGLOBIN 9.6 gm/dL (14.0-18.0); MCH 32.5 pg (26.0-34.0); MCHC 32.5 g/dL (28.0-37.0); MCV 99.9 fL (80.0-100.0); RBC 2.94 mil/uL (4.50-6.00); RDW 18.3 % (10.5-14.5)
[2018-10-14 00:58] LABS: CALCIUM 8.4 mg/dL (8.5-10.1); CREATININE 2.3 mg/dL (0.7-1.3); POTASSIUM 4.7 mmol/L (3.5-5.1)
[2018-10-14 01:06] LABS: INR 1.3; PROTIME 13.2 Seconds (9.3-11.4)
[2018-10-14 01:08] LABS: ALBUMIN 3.1 g/dL (3.4-5.0); TOTAL BILIRUBIN 1.6 mg/dL (<0.1-1.0); TOTAL PROTEIN 6.7 g/dL (6.4-8.2); TROPONIN-I 0.06 ng/mL (<0.06)
[2018-10-14 04:08] VITALS: BP 120/75
[2018-10-14 05:47] LABS: HEMATOCRIT 27.1 % (42.0-52.0); HEMOGLOBIN 8.8 gm/dL (14.0-18.0)
[2018-10-14 07:29] VITALS: BP 118/65
[2018-10-14 14:19] VITALS: BP 138/76
[2018-10-14 18:02] VITALS: BP 161/110
[2018-10-14 18:05] VITALS: BP 151/82
[2018-10-14 20:05] VITALS: BP 124/77
[2018-10-15 04:20] VITALS: BP 137/95
[2018-10-15 05:35] LABS: HEMATOCRIT 27.6 % (42.0-52.0)
[2018-10-15 05:58] LABS: ALBUMIN 2.6 g/dL (3.4-5.0); CREATININE 2.3 mg/dL (0.7-1.3); POTASSIUM 4.7 mmol/L (3.5-5.1); TOTAL PROTEIN 6.1 g/dL (6.4-8.2)
[2018-10-15 06:03] LABS: % SATURATION 16 % (20-39); IRON 37 ug/dL (65-175); TIBC 226 ug/dL (250-450)
[2018-10-15 06:17] LABS: FOLIC ACID 10.9 ng/mL (8.6-58.9); TSH 3.37 uIU/mL (0.358-3.740)
[2018-10-15 07:27] VITALS: BP 141/78
[2018-10-15 12:06] VITALS: BP 130/83
[2018-10-15] MEDS ORDERED: AZITHROMYCIN 2250 MG PO (12:21)
[2018-10-15] MEDS ORDERED: ACETAMINOPHEN325 M1 PO (12:21)
[2018-10-15] MEDS ORDERED: PANTOPRAZOLE SO40 M1 PO (12:21)
[2018-10-15] MEDS ORDERED: CEFUROXIME250 MG PO (12:21)
[2018-10-15 14:39] VITALS: BP 130/83
== END 2018-10-15 14:56 | disposition home or self-care (01) | DRG 871 ==
LOC: 4W 20:59 → 3W 22:09 → ENTRNSPT 10-15 14:50 → EDTRNSPTSTS 10-15 14:53 → 3W 10-15 14:56
PROVIDERS: Internal Medicine; Internal Medicine Gastroenterology; Nurse Practitioner Acute Care
PROC: 0DB68ZX Excision of Stomach, Via Natural or Artificial Opening Endoscopic, Diagnostic (ICD-10-PCS; principal; 2018-10-15)
DX: A41.9 Sepsis, unspecified organism (principal); J18.9 Pneumonia, unspecified organism; K92.2 Gastrointestinal hemorrhage, unspecified; D62 Acute posthemorrhagic anemia; N17.9 Acute kidney failure, unspecified; L53.8 Other specified erythematous conditions; N18.3 Chronic kidney disease, stage 3 (moderate); E11.42 Type 2 diabetes mellitus with diabetic polyneuropathy; I48.2 Chronic atrial fibrillation; I25.10 Atherosclerotic heart disease of native coronary artery without angina pectoris; E78.00 Pure hypercholesterolemia, unspecified; I49.5 Sick sinus syndrome; E78.5 Hyperlipidemia, unspecified; I12.9 Hypertensive chronic kidney disease with stage 1 through stage 4 chronic kidney disease, or unspecified chronic kidney disease; E11.22 Type 2 diabetes mellitus with diabetic chronic kidney disease; Z87.442 Personal history of urinary calculi; Z95.0 Presence of cardiac pacemaker; Z95.1 Presence of aortocoronary bypass graft; Z88.8 Allergy status to other drugs, medicaments and biological substances; Z87.891 Personal history of nicotine dependence; Z86.010 Personal history of colon polyps; Z79.899 Other long term (current) drug therapy; Z80.0 Family history of malignant neoplasm of digestive organs; Z79.1 Long term (current) use of non-steroidal anti-inflammatories (NSAID)
CPT/HCPCS: 10779; 10879; 62110; 62900; 70005

== ENCOUNTER 2019-01-03 09:15 | Inpatient (IN) | payer OTHER ==
[~2019-01-03] VITALS: Ht 177.8 cm; Wt 106.4 kg
[~2019-01-03 09:15] MED LIST changes: +ACETAMINOPHEN325 M1 PO; +CEFUROXIME250 MG PO; +PANTOPRAZOLE SO40 M1 PO
[2019-01-03 09:18] VITALS: BP 164/89
[2019-01-03] MEDS ORDERED: ELIQUIS5 MG PO (09:45)
[2019-01-03] MEDS ORDERED: POTASSIUM20 PO (09:46)
[2019-01-03 11:47] LABS: HEMATOCRIT 34.8 % (42.0-52.0); HEMOGLOBIN 11.2 gm/dL (14.0-18.0); MCHC 32.3 g/dL (28.0-37.0); RBC 3.51 mil/uL (4.50-6.00); WBC 7.5 thou/uL (4.0-11.0)
[2019-01-03 11:53] VITALS: BP 114/90
[2019-01-03 11:59] LABS: APTT 28.5 Seconds (24.5-32.8); INR 1.3; PROTIME 13.4 Seconds (9.3-11.4)
[2019-01-03 12:13] LABS: ANION GAP 13 mmol/L (7-16); BUN 50 mg/dL (7-18); CALCIUM 9.4 mg/dL (8.5-10.1); CHLORIDE 100 mmol/L (98-107); CO2 27 mmol/L (21-32); CREATININE 2.2 mg/dL (0.7-1.3); GLUCOSE 237 mg/dL (74-106); POTASSIUM 4.1 mmol/L (3.5-5.1); SODIUM 140 mmol/L (136-145)
[2019-01-03 12:15] LABS: TROPONIN-I <0.06 ng/mL (<0.06)
[2019-01-03 12:16] VITALS: BP 155/80
[2019-01-03 12:52] VITALS: BP 160/65
--- NOTE | 2019-01-03 13:02 | NUR ---
[age] YEAR OLD MALE ADMITTED TO CCU ROOM 213 UNDER THE CARE OF DR. ARCHER. PT WAS BROUGHT INTO THE ER AFTER A FALL AT HOME THIS MORNING. PT HAS FRACTURE TO TO RIBS THREE TO SEVEN ON HIS RIGHT SIDE. PT IS ALERT AND ORIENTED TIME FOUR. VSS, 98%RA, PT HAS PACEMAKER. PT DOES C/O PAIN RIGHT SIDE STATES MORPHINE GIVEN IN ER HELPED SOME. PT UP TO SIDE OF BED WITH ASSSIT OF ONE. AT BEDSIDE DURNING AADMISSION ASSESSMENT. WILL CONTINUE TO MONITOR.
[2019-01-03 16:08] VITALS: BP 148/80
[2019-01-03 19:30] VITALS: BP 143/77
[2019-01-04 00:30] VITALS: BP 137/70
[2019-01-04 03:53] LABS: POTASSIUM 3.7 mmol/L (3.5-5.1)
[2019-01-04 05:13] LABS: HEMATOCRIT 30.5 % (42.0-52.0); HEMOGLOBIN 10.1 gm/dL (14.0-18.0); MCH 32.9 pg (26.0-34.0); MCHC 33.1 g/dL (28.0-37.0); MCV 99.2 fL (80.0-100.0); RBC 3.08 mil/uL (4.50-6.00); RDW 17.5 % (10.5-14.5); WBC 7.7 thou/uL (4.0-11.0)
[2019-01-04 05:17] VITALS: BP 134/68
--- NOTE | 2019-01-04 06:31 | NUR ---
ASSUME CARE 1900. PT/VITALS STABLE. INTERMITTENT PAIN NOTED. POOR ACTIVTIY TOLERANCE. ASSESSMETN ASCHARTED. PROGRESSING SLOWLY. ADEQUATE REST NOTED TONIGHT. AFIB ON MONITOR/PT STABLE. PLAN IS FOR EFFECTIVE PAIN MANAGEMENT. WILL CONTINUE TO FOLLOW WITH POC
[2019-01-04 08:05] VITALS: BP 151/93
[2019-01-04 12:05] VITALS: BP 135/76
[2019-01-04 12:20] VITALS: BP 135/76
[2019-01-04 16:00] VITALS: BP 148/73
--- NOTE | 2019-01-04 17:09 | NUR ---
assessment: CM REVIEWED CHART AND MET WITH PATIENT AT THE BEDSIDE. PT IS ALERT AND ORIENTED. PT WAS ADMITTED AFTER RIB FX FROM FALL. PT REPORTS HE LIVES IN A HOUSE WITH HIS . PT REPORTS ONE STEP TO ENTER. PT REPORTS HAVING 14 STEPS WITH HANDRAILS TO THE BASEMENT FOR LAUNDRY BUT REPORTS HE DOES NOT HAVE TO GO DOWN THERE. PT REPORTS HE AMBULATES INDPENDENTLY BUT DOES HAVE A CANE AT HOME. CM DISCUSSED ROLE. PT HAS NOT HAD HH IN THE PAST NOR BEEN TO A SNF. CM DISCUSSED SNF OPTIONS WITH PATIENT. PT STATING HE IS PREFERRABLY NOT WANTING TO GO TO A SNF AND PREFERS TO GO HOME. PT STATING HE WILL SEE HOW HIS PAIN IS TOMORROW BUT PREFERS TO GO HOME AND NOT TO A SNF. CM WILL CONTINUE TO FOLLOW TO ASSIST NEEDED.
--- NOTE | 2019-01-04 20:25 | NUR ---
ASSUMED CARE OF PT AT SHIFT CHANGE. ASSESSMENT CHARTED. MEDS GIVEN PER DEC. PT ALERT AND ORIENTED. FORGETFUL AT TIMES. C/O RIGHT RIB PAIN, MANAGED WITH PO PAIN MEDS. VSS, AFIB ON MONITOR. RATES CONTROLLED. PT UP WITH PHYSICAL THERAPY THIS SHIFT, PAINFUL, BUT TOLERATED. O2 SATS WNL ON ROOM AIR, NO S/SX OF CARDIAC OR RESP DISTRESS NOTED. DENIES CONCERNS AT THIS TIME. WILL CONTINUE TO MONITOR
[2019-01-05 04:06] VITALS: BP 162/80
[2019-01-05 07:10] LABS: FOLIC ACID 26.9 ng/mL (8.6-58.9)
[2019-01-05 07:15] VITALS: BP 149/79
--- NOTE | 2019-01-05 07:37 | NUR ---
ASSESSMENT DOCUMENTED.PT RESTED WELL IN NO ACUTE DISTRESS.A/OX2-3 WITH CONFUSION,PT FORGETFUL,EASY TO REORIENT.CONT TO C/O PAIN TO RIGHT SIDE THAT IS CONTROLLED WITH PAIN MEDS.PT STATES ,PAIN OCCURS WHENEVER HE MOVES OTHERWISE WHEN STILL,HE IS NOT IN ANY PAIN.AFIB ON MONITOR WITH CONTROLLED RATE.VSS.VOIDING VIA URINAL.PT/OT ON BOARD.POC IS TO TRANSFER TO REHAB WHEN STABLE.
--- NOTE | 2019-01-05 12:44 | NUR ---
ON-GOING ASSSESSMENT: PT IS STILL HAVING QUITE A BIT OF PAIN. PT NEEDING ASSISTANCE WITH PT/OT. CM DISCUSSED WITH PATIENT AND HE FEELS HE WOULD BENEFIT FROM GOING TO A FACILITY PRIOR TO RETURNING HOME. CM DISCUSSED SNF OPTIONS AND PROVIDED PATIENT WITH A LIST OF SNF IN NETWORK WITH HIS INSURANCE. IS ALSO PRESENT AND AGREEABLE WITH POSSIBLE PLAN TO DISCHARGE TO SNF PENDING INSURANCE AUTH. THEY ARE DISCUSSING FACILITIES AND WILL CONTACT CM WHERE THEY WANT REFERRALS SENT.
[2019-01-05 15:55] VITALS: BP 153/81
--- NOTE | 2019-01-05 16:26 | NUR ---
ASSESSMENT CHARTED - MEDS PER DEC - GIVEN PERCOCET ONE X 2 DOSES FOR CO'S OF PAIN IWHT MOD RELIEF. PT AMUBLATED WITH PHYS THERAPY - UP TO THE CHAIR FOR LUNCH AND THEN THIS AFTERNOON FOR A WHILE. TO XRAY VIA WHEELCHAIR FOR SHOULDER XRAY AND PATIENT WITH CO'S OF PAIN IN R SHOULDER AREA - XRAY NEG FOR FRACTURE. 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 SWS IN TO SEE PATIENT TODAY TO ASSIST WITH SKILLED PLACEMENT FOR PATIENT PRIOR TO GOING HOME. NO CO'S AT THE PRESENT TIME.
[2019-01-05 19:11] VITALS: BP 157/74
--- NOTE | 2019-01-06 02:43 | NUR ---
ASSESSMENT DOCUMENTED.PT A/O X2-3 WITH CONFUSION IN AND OUT.S/P FALL WITH INJURY TO RIGHT SIDE RIBS.PAIN MED ADMINISTERED PER ORDERS.VSS.AFIB ON THE MONITOR.REORIENTED PT SEVERAL TIMES.FALL PRECAUTIONS IN PLACE.POC IS TO CONTINUES TO CONTROL PAIN AND LATER DISCHARGE TO REHAB WHEN STABLE.WILL CONT TO MONITOR PER POC.
[2019-01-06 04:02] LABS: CALCIUM 8.5 mg/dL (8.5-10.1); CREATININE 1.7 mg/dL (0.7-1.3); POTASSIUM 3.6 mmol/L (3.5-5.1)
[2019-01-06 04:14] LABS: HEMATOCRIT 27.1 % (42.0-52.0); HEMOGLOBIN 9.3 gm/dL (14.0-18.0); MCH 33.2 pg (26.0-34.0); MCHC 34.1 g/dL (28.0-37.0); MCV 97.2 fL (80.0-100.0); RBC 2.79 mil/uL (4.50-6.00); RDW 17.7 % (10.5-14.5); WBC 6.5 thou/uL (4.0-11.0)
[2019-01-06 04:55] VITALS: BP 160/85
[2019-01-06 09:05] VITALS: BP 162/89
--- NOTE | 2019-01-06 15:55 | NUR ---
DISCHARGE PLANNING. POST ACUTE CARE RECOMMENDED AT DISCHARGE. REFERRAL FAXED TO [facility] IS PATIENTS FIRST CHOICE. [facility] ACCEPTING OF PATIENT AT DISCHARGE. PENDING INSURANCE AUTH. UPDATED CLINICAL INFORMATION FAXED TO [facility] FOR INSURANCE AUTH PROCESS. FOLLOWING TO ASSIST.
[2019-01-06 16:14] VITALS: BP 147/79
--- NOTE | 2019-01-06 17:31 | NUR ---
ASSESSMENT DOCUMENTED. PT ELERT AND ORIENTED WITH FORGETFULNESS. REPORT HAVING RIGHT SIDE PAIN. PRN PAIN MED GIVEN WITH RELIEF. AFIB ON TELI. SEEN BY DR. ARCHER. ORDERS GIVEN TO TRANSFER PT TO SICU. WILL CONTINUE TO MONITOR.
--- NOTE | 2019-01-06 18:18 | NUR ---
SW reviewed chart and spoke with nursing and attending physician. Pt is progressing towards goals for discharge. 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 Awaiting insurance authorization at this time. EMMANUEL discussed with [employer] liaison and injury prevention coordinator. EMMANUEL met with pt and at bedside to provide update. Both are aware and agreeable with discharge plan. EMMANUEL is following to assist as needed with discharge planning.
[2019-01-06 20:17] VITALS: BP 165/97
--- NOTE | 2019-01-07 05:57 | NUR ---
PATIENT ALERT AND ORIENTED X4 BUT FORGETFUL. ARRIVED ON UNIT ABOUT 1944 VIA W/C ACCOMPAINED BY STAFF. HEARTRATE IRREGULAR. PATIENT IS ON BEDREST AT THIS TIME. C/O PAIN IN RIGHT RIBS WHEN ARRIVED ON UNIT BUT WAS TOO EARLY FOR PAIN MED. CHECKED ON PAIN LEVEL LATER WAS DOWN QUITE ABIT BUT STILL HIGH ENOUGH FOR PAIN MED, GIVEN AND PT WAS ASLEEP SHORTLY AFTER. PATIENT SLEPT VERY LITTLE THIS SHIFT.
[2019-01-07 06:20] LABS: HEMATOCRIT 28.5 % (42.0-52.0); HEMOGLOBIN 9.6 gm/dL (14.0-18.0); MCH 32.6 pg (26.0-34.0); MCHC 33.6 g/dL (28.0-37.0); RBC 2.93 mil/uL (4.50-6.00); RDW 18.1 % (10.5-14.5); WBC 5.4 thou/uL (4.0-11.0)
[2019-01-07 06:34] LABS: CALCIUM 8.7 mg/dL (8.5-10.1); CREATININE 1.6 mg/dL (0.7-1.3); POTASSIUM 3.8 mmol/L (3.5-5.1)
[2019-01-07] MEDS ORDERED: PERCOCET PO (07:42)
[2019-01-07] MEDS ORDERED: LIDOPATCH1 EACH TRANSDERM (07:46)
[2019-01-07 10:00] VITALS: BP 146/86
--- NOTE | 2019-01-07 10:10 | NUR ---
SW reviewed chart and spoke with nursing. [facility] last evening. Awaiting therapy notes from today, to send to [facility] for review. Will need insurance authorization. Chart copy requested. EMMANUEL is following to assist as needed with discharge planning.
--- NOTE | 2019-01-07 11:16 | NUR ---
ASSUMED PT CARE AT 0700. ASSESSMENT COMPLETED AND IS CHARTED. VSS. PT AWAKE, ALERT/ORIENTED X4 THOUGH FORGETFUL AT TIMES. REPORTS RIGHT RIB PAIN RATED 4/10. PT DID NOT WANT PAIN MEDICATION BUT WAS ENCOURAGED TO TAKE IT IN PREPARATION FOR PHYSICAL THERAPY. PT AGREED TO THIS. WILL CONTINUE WITH CURRENT CARE.
--- NOTE | 2019-01-07 11:46 | NUR ---
dp sent [facility] OT notes for today, PT not available as there was schedule conflict (per note). DP contacted [facility] to let them know to expect OT note.
--- NOTE | 2019-01-07 14:24 | NUR ---
PT PROGRESSING WELL THIS SHIFT. PAIN IS CONTROLLED WITH MINIMAL PAIN MEDICATION. PT STATES HE WALKED WITH PHYSICAL THERAPY AND TOLEATED WELL. RESTING IN BED AT THIS TIME. NO NEW CONCERNS OR COMPLAINTS. WILL CONTINUE TO MONIOR.
--- NOTE | 2019-01-07 16:42 | NUR ---
REPORT CALLED TO [facility] [place]. DISMISSED PT IN STABLE CONDITION VIA WHEELCHAIR AND TRANSPORT SERVICES.
== END 2019-01-07 16:43 | DRG 184 ==
LOC: ER 09:15 → 2N 11:50 → EROBS 11:50 → 2N 12:27 → SICU 01-06 20:09
PROVIDERS: Emergency Medicine; Nurse Practitioner Family; ADMIT Hospitalist
DX: S22.49XA Multiple fractures of ribs, unspecified side, initial encounter for closed fracture (principal); N17.9 Acute kidney failure, unspecified; N18.4 Chronic kidney disease, stage 4 (severe); E78.5 Hyperlipidemia, unspecified; I48.91 Unspecified atrial fibrillation; K21.9 Gastro-esophageal reflux disease without esophagitis; E11.22 Type 2 diabetes mellitus with diabetic chronic kidney disease; I12.9 Hypertensive chronic kidney disease with stage 1 through stage 4 chronic kidney disease, or unspecified chronic kidney disease; E11.42 Type 2 diabetes mellitus with diabetic polyneuropathy; I25.10 Atherosclerotic heart disease of native coronary artery without angina pectoris; Z87.442 Personal history of urinary calculi; Z95.0 Presence of cardiac pacemaker; Z95.1 Presence of aortocoronary bypass graft; Z88.8 Allergy status to other drugs, medicaments and biological substances; Z79.01 Long term (current) use of anticoagulants; Z87.891 Personal history of nicotine dependence; Z80.0 Family history of malignant neoplasm of digestive organs; S22.41XA Multiple fractures of ribs, right side, initial encounter for closed fracture; W18.39XA Other fall on same level, initial encounter; Y93.89 Activity, other specified; Y92.89 Other specified places as the place of occurrence of the external cause; Y99.8 Other external cause status
CPT/HCPCS: 10081; 15002